=== PATIENT | male | born 1990 | race Caucasian/White ===

== ENCOUNTER → 2020-08-19 | Outpatient (CLI) | payer OTHER, SELFPAY | END | disposition home or self-care (01) | LOC: LABSPEC 17:28 | PROVIDERS: PCP Nurse Practitioner Family; Referring Provider Family Medicine; Visit Provider Family Medicine | DX: Z20.822 Contact with and (suspected) exposure to COVID-19 (principal) | CPT/HCPCS: 87635; C9803; U0005; U0003 ==

== ENCOUNTER 2024-09-14 13:09 | Emergency (ER) | payer OTHER, SELFPAY ==
[2024-09-14] VITALS (10 sets, daily range): BP systolic 94–154; BP diastolic 56–107; PULSE 89–111; RESP 16–33; TEMP 36.7–36.8; O2SAT 94–98; BMI 35.4
[2024-09-14 13:26] LABS: Absolute Lymphocyte Count 2.55 X10^3/uL (0.83-4.51); Absolute Neutrophil Count 6.8 X10^3/uL (2.0-7.7); Basophil# 0.07 X10^3/uL; Basophil% 0.7 % (0-1); Eosinophil# 0.16 X10^3/uL; Eosinophils% 1.6 % (0-5); Hematocrit 44.2 % (40-54); Hemoglobin 15.2 g/dL (13.0-16.5); Lymphocyte # 2.55 X10^3/ul (0.83-4.51); Lymphocyte % 25.1 % (19-41); Mean Corp Hgb Conc 34.4 g/dL (32-36); Mean Corpuscular Volume 90.2 fL (80-94); Mean Platelet Vol. 9.7 fl (6.2-12.0); Monocyte# 0.54 X10^3/uL; Monocyte% 5.3 % (0-10); NRBC Flagged by Analyzer 0 % (0-5); Neutrophil # 6.78 X10^3/uL (2.7-7.7); Neutrophil % 66.9 % (47-70); Platelet Count 307 K/mm3 (150-450); RBC Distribution Width CV 12.6 % (11.6-14.6); RBC Distribution Width SD 41.6 fl (35.1-43.9); White Blood Count 10.1 K/mm3 (4.4-11.0)
--- NOTE | 2024-09-14 13:40 | CT_ITS ---
PROCEDURE: BRAIN/HEAD WITHOUT CONTRAST REASON FOR EXAM: Focal right-sided seizure. The patient is non cooperative. TECHNIQUE: IV CONTRAST: None COMPARISON: None. TECHNIQUE: Helical imaging of CT head was performed without IV contrast. One or more of the following dose reduction techniques were used: automated exposure control, adjustment of the mA and/or kV according to patient size, use of iterative reconstruction technique. COMPARISON: None FINDINGS: BRAIN PARENCHYMA: No evidence for acute hemorrhage or large territory infarct. EXTRA-AXIAL SPACES: No acute extra-axial fluid collection identified. Basal cisterns are patent. MIDLINE SHIFT: None. VENTRICLES: No evidence of hydrocephalus. SCALP SOFT TISSUES: No significant abnormality. CALVARIUM: No acute process. VISUALIZED PARANASAL SINUSES: No air-fluid levels. MASTOID AIR CELLS: Grossly clear. CT/Brain/Head without Contrast IMPRESSION: No evidence of acute intracranial abnormality. One or more dose reduction techniques were used (e.g., Automated exposure contr ol, adjustment of the mA and/or kV according to patient size, use of iterative reconstruction technique). Reading Location: [place] [id number]
[2024-09-14 13:41] LABS: Anion Gap 8 (5-15); BUN 12 mg/dL (7-18); BUN/Creat Ratio 12.1 RATIO (10-20); Calcium,Total 8.9 mg/dL (8.5-10.1); Chloride 110 mmol/L (98-107); Creatinine, Serum 0.99 mg/dL (0.70-1.30); EST Glomerular Filtration Rate 93 mL/min (>60); Est Glom Filt Rate - Afr Amer 112 mL/min (>60); Estimated Creatinine Clearance 142.24 ml/min; Glucose 127 mg/dL (74-106); Potassium 3.4 mmol/L (3.5-5.1); Sodium Level 138 mmol/L (136-145)
[2024-09-14 13:42] LABS: Valproic Acid (Depakene) Level 27 ug/mL (50-100)
[2024-09-14] MEDS: Valproate Sodium 500 MG in Dextrose 5%-Water (50mL Bag) 50 ML 50 MG IV (13:46)
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
== END 2024-09-14 15:38 | disposition home or self-care (01) ==
PROVIDERS: Emergency Provider Emergency Medicine; Visit Provider Emergency Medicine
DX: G40.209 Localization-related (focal) (partial) symptomatic epilepsy and epileptic syndromes with complex partial seizures, not intractable, without status epilepticus (principal); F32.A Depression, unspecified; K21.9 Gastro-esophageal reflux disease without esophagitis; Z79.899 Other long term (current) drug therapy
CPT/HCPCS: 70450; 80048; 80164; 85025; 96365; 96366; 99284; A4216

== ENCOUNTER 2024-10-08 09:00 | Outpatient (CLI) | payer OTHER, SELFPAY ==
--- NOTE | 2024-10-08 13:22 | EKG12_ITS ---
Test Reason : PREOP Blood Pressure : */* mmHG Vent. Rate : 70 BPM Atrial Rate : 70 BPM P-R Int : 170 ms QRS Dur : 94 ms QT Int : 390 ms P-R-T Axes : 37 35 10 degrees QTcB Int : 421 ms Normal sinus rhythm Normal ECG Confirmed by Rahat Sommers ([id number]), scientific publications editor IDALIA GARG ([id number]) on 10/09/2024 5:59:01 AM Referred By: Yony Schilling Confirmed By: Rahat Sommers
[2024-10-08 15:14] LABS: Partial Thromboplast Time 25.7 Seconds (24.1-36.2)
[2024-10-08 15:49] LABS: Valproic Acid (Depakene) Level 24 ug/mL (50-100)
[2024-10-08 15:51] LABS: Magnesium 2.3 mg/dL (1.5-2.2)
[2024-10-08 16:13] LABS: Hepatitis C Antibody Nonreactive (Nonreactive)
--- NOTE | 2024-10-09 11:58 | PAT.ANE_ITS ---
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 When Was Last Pacemaker Check QUESTION #4 FULL TEXT: You/Your Family Experience fever (hyperthermia) with Anesthesia Last Oral Intake Last Oral intake: Last Oral Intake NPO since Meds taken in AM with sips of water? Meds patient instructed to take am of surgery PONV PONV - metal bench patternmaker: PONV - metal bench patternmaker Female No 10/08/24 09:43 HX of Motion Sickness No 10/08/24 09:43 HX of N/V After Surgery No 10/08/24 09:43 Non-Smoker No 10/08/24 09:43 Duration of Surgery greater Yes 10/08/24 09:43 than 60 minutes Number of Risk Factors 1 10/08/24 09:43 PONV Score Low Risk 10/08/24 09:43 Height & Weight Height & Weight: Anesthesia: Height & Weight Height 5 ft 9 in 09/29/24 13:49 Respiratory Assessment Respiratory Assessment - metal bench patternmaker: Respiratory Tract Infection Hx - metal bench patternmaker Hx Respiratory Tract Infection No 10/08/24 09:43 STOP Sleep Apnea STOP Sleep Apnea - metal bench patternmaker: STOP Sleep Apnea - metal bench patternmaker Hx Hypertension No 10/08/24 09:43 Hx Sleep Apnea No 10/08/24 09:43 CPAP BIPAP Do you snore loudly (louder Yes 10/08/24 09:43 than talking or can be heard Do you often feel tired/ Yes 10/08/24 09:43 fatigued/ sleepy during daytime? Has anyone observed you stop No 10/08/24 09:43 breathing during sleep? STOP Results Positive 10/08/24 09:43 QUESTION #5 FULL TEXT : Do you snore loudly (louder than talking or can be heard through closed doors)? 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 Specify any problems Hx of Preganancy in last 3 N/A 10/08/24 09:43 Months Nurse Filling Out Transfusion DSCHRIBER 10/08/24 09:43 & Questions: Date: 10/08/24 10/08/24 09:43 Time: 09:45 10/08/24 09:43 Patient unable to answer at this time (ie. confused, unrespo /Reproduction History /Reproductive History - metal bench patternmaker: /Reproductive Hx- metal bench patternmaker Hx Now No 10/08/24 09:43 Gestational Age (in weeks): EDC: Hx Hx Para Hx Section SAB No 10/08/24 09:43 Active Medications Active Medications: Current Medications Generic Name Dose Route Start Last Admin Trade Name Freq PRN Reason Stop Dose Admin Acetaminophen 1,000 mg 10/12/24 07:30 Acetaminophen 500 Mg Tablet PO 10/12/24 07:31 X1 ONE Cefazolin Sodium 2 gm/ N/A 20 mls @ 400 mls/hr 10/12/24 07:30 IV 10/12/24 07:32 PREOP ONE Tranexamic Acid 1,000 mg/ 110 mls @ 440 mls/hr 10/12/24 07:30 Sodium Chloride IV 10/12/24 07:44 X1 ONE Tranexamic Acid 1,000 mg/ 110 mls @ 440 mls/hr 10/12/24 07:30 Sodium Chloride IV 10/12/24 07:44 X1 ONE Magnesium Sulfate 1 gm/ 102 mls @ 408 mls/hr 10/12/24 07:30 Dextrose IV 10/12/24 07:44 X1 ONE Insulin Human Lispro 1 - 6 unit 10/12/24 07:30 Insulin Lispro 100 Unit/Ml Insuln.Pen SC 10/12/24 23:59 Q4H PRN PRN BG>/= 180, SEE PROTOCOL Protocol PFSH Medical History (Updated 10/08/24 @ 09:53 by Zuly Atkinson) Depression Anxiety Marijuana use Alcohol use History of steroid therapy Ambulates with cane Back pain Shortness of breath on exertion Vapes nicotine containing substance History of pain when walking Seizure disorder Home Medications ?Medication ?Instructions ?Recorded ?Last Taken ?Type aripiprazole 15 mg tablet 15 mg PO DAILY 09/14/24 Unkn own History buspirone 15 mg tablet 15 mg PO BID 09/14/24 Unknow n History divalproex 500 mg tablet,delayed 500 mg PO BID #60 tab s 09/14/24 Unknown Rx release (Depakote) lacosamide 150 mg tablet 300 mg PO BID 09/14/24 Unkno wn History topiramate 50 mg tablet 100 mg PO BID 10/08/24 Unkno wn History Allergy/AdvReac Type Severity Reaction Status Date / Time No Known Allergies Allergy Verified 10/08/24 09:29 Surgical History (Updated 10/08/24 @ 09:53 by Zuly Atkinson) History of tonsillectomy and adenoidectomy Social History (Updated 09/29/24 @ 13:53 by Tammy Arredondo) household members: spouse Smoking Status: Current every day smoker tobacco type: e-cigarettes alcohol intake: current Audit: Pertinent Findings Pertinent Findings EKG Perinent findings: October 08, 2024. Normal sinus rhythm.
--- NOTE | 2024-10-09 12:56 | PAT.ANESEVAL ---
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 When Was Last Pacemaker Check QUESTION #4 FULL TEXT: You/Your Family Experience fever (hyperthermia) with Anesthesia Last Oral Intake Last Oral intake: Last Oral Intake NPO since Meds taken in AM with sips of water? Meds patient instructed to take am of surgery PONV PONV - baffle mounter: PONV - baffle mounter Female No 10/08/24 09:43 HX of Motion Sickness No 10/08/24 09:43 HX of N/V After Surgery No 10/08/24 09:43 Non-Smoker No 10/08/24 09:43 Duration of Surgery greater Yes 10/08/24 09:43 than 60 minutes Number of Risk Factors 1 10/08/24 09:43 PONV Score Low Risk 10/08/24 09:43 Height & Weight Height & Weight: Anesthesia: Height & Weight Height 5 ft 9 in 09/29/24 13:49 Respiratory Assessment Respiratory Assessment - baffle mounter: Respiratory Tract Infection Hx - baffle mounter Hx Respiratory Tract Infection No 10/08/24 09:43 STOP Sleep Apnea STOP Sleep Apnea - baffle mounter: STOP Sleep Apnea - baffle mounter Hx Hypertension No 10/08/24 09:43 Hx Sleep Apnea No 10/08/24 09:43 CPAP BIPAP Do you snore loudly (louder Yes 10/08/24 09:43 than talking or can be heard Do you often feel tired/ Yes 10/08/24 09:43 fatigued/ sleepy during daytime? Has anyone observed you stop No 10/08/24 09:43 breathing during sleep? STOP Results Positive 10/08/24 09:43 QUESTION #5 FULL TEXT : Do you snore loudly (louder than talking or can be heard through closed doors)? Tobacco Use History Tobacco Use History - baffle mounter: Tobacco Use History - baffle mounter Tobacco Use Smoking Status Current every day smoker 10/08/24 09:43 Hx Tobacco Use Yes 10/08/24 09:43 Years Smoking Packs Smoked per Day Smoking Cessation Date was within the last 15 years Hx Smoking Cessation Date Hx Smoking Cessation Counseling Hematologic Medial History Hematologic Hx - baffle mounter: Hematologic Medical Hx - manager photography Hx of Blood Transfusion No 10/08/24 09:43 Hx of Transfusion in last 3 No 10/08/24 09:43 Months Date of Last Transfusion (if within last 3 months) Ever experience any problems No 10/08/24 09:43 with transfusion(s)? Specify any problems Hx of Preganancy in last 3 N/A 10/08/24 09:43 Months Nurse Filling Out Transfusion DSCHRIBER 10/08/24 09:43 & Questions: Date: 10/08/24 10/08/24 09:43 Time: 09:45 10/08/24 09:43 Patient unable to answer at this time (ie. confused, unrespo /Reproduction History /Reproductive History - baffle mounter: /Reproductive Hx- baffle mounter Hx Now No 10/08/24 09:43 Gestational Age (in weeks): EDC: Hx Hx Para Hx Section SAB No 10/08/24 09:43 Active Medications Active Medications: Current Medications Generic Name Dose Route Start Last Admin Trade Name Freq PRN Reason Stop Dose Admin Acetaminophen 1,000 mg 10/12/24 07:30 Acetaminophen 500 Mg Tablet PO 10/12/24 07:31 X1 ONE Cefazolin Sodium 2 gm/ N/A 20 mls @ 400 mls/hr 10/12/24 07:30 IV 10/12/24 07:32 PREOP ONE Tranexamic Acid 1,000 mg/ 110 mls @ 440 mls/hr 10/12/24 07:30 Sodium Chloride IV 10/12/24 07:44 X1 ONE Tranexamic Acid 1,000 mg/ 110 mls @ 440 mls/hr 10/12/24 07:30 Sodium Chloride IV 10/12/24 07:44 X1 ONE Magnesium Sulfate 1 gm/ 102 mls @ 408 mls/hr 10/12/24 07:30 Dextrose IV 10/12/24 07:44 X1 ONE Insulin Human Lispro 1 - 6 unit 10/12/24 07:30 Insulin Lispro 100 Unit/Ml Insuln.Pen SC 10/12/24 23:59 Q4H PRN PRN BG>/= 180, SEE PROTOCOL Protocol PFSH Medical History (Updated 10/08/24 @ 09:53 by Zuly Atkinson) Depression Anxiety Marijuana use Alcohol use History of steroid therapy Ambulates with cane Back pain Shortness of breath on exertion Vapes nicotine containing substance History of pain when walking Seizure disorder Home Medications ?Medication ?Instructions ?Recorded ?Last Taken ?Type aripiprazole 15 mg tablet 15 mg PO DAILY 09/14/24 Unknown History buspirone 15 mg tablet 15 mg PO BID 09/14/24 Unknown History divalproex 500 mg tablet,delayed 500 mg PO BID #60 tabs 09/14/24 Unknown Rx release (Depakote) lacosamide 150 mg tablet 300 mg PO BID 09/14/24 Unknown History topiramate 50 mg tablet 100 mg PO BID 10/08/24 Unknown History Allergy/AdvReac Type Severity Reaction Status Date / Time No Known Allergies Allergy Verified 10/08/24 09:29 Surgical History (Updated 10/08/24 @ 09:53 by Zuly Atkinson) History of tonsillectomy and adenoidectomy Social History (Updated 09/29/24 @ 13:53 by Tammy Arredondo) household members: spouse Smoking Status: Current every day smoker tobacco type: e-cigarettes alcohol intake: current Audit: Pertinent Findings HISTORY of Pertinent Findings History of Pertinent Findings: EKG Pertinent Findings EKG Perinent findings October 08, 2024. Normal 10/09/24 12:00 sinus rhythm. Recommendation Anesthesia Recommendation Anesthesia recommendation: F/U recommended (Patient had subtherapeutic Depakote levels on September 14, 2024. He had a seizure at that time. Valproic acid dosing was doubled. On October 08, 2024 levels were checked again and still subtherapeutic. Please have patient follow-up with his neurologist to ensure that he is adequately treated.)
--- NOTE | 2024-10-09 17:12 | NURSING ---
PT CASE WAS CALLED AND INFORMED THAT THEIR CASE FOR THURSDAY 10/12 WAS TO BE CANCELED BY ANESTHESIOLOGIST DUE TO NEEDING TO FOLLOW UP WITH NEUROLOGY AND GETTING THEIR SEIZURE DISORDER UNDER CONTROL. PT INFORMED TO CALL DR. ALBARADO'S OFFICE AND HIS NEUROLOGIST TO BE OPTIMIZED FOR SURGERY AND BE RESCHEDULED.
[2024-10-10 05:07] LABS: Hepatitis A AB, Total Negative (Negative)
[2024-10-12 15:08] LABS: HIV-1 RNA by PCR, Quant. < 20 copies/mL (.)
== END 2024-10-08 20:00 | disposition home or self-care (01) ==
LOC: PAT 12-04 14:41
PROVIDERS: Anesthesiology; Referring Provider Orthopaedic Surgery Orthopaedic Surgery of the Spine; Visit Provider Orthopaedic Surgery Orthopaedic Surgery of the Spine
DX: Z01.818 Encounter for other preprocedural examination (principal)
CPT/HCPCS: 80164; 83735; 85730; 86708; 86803; 86850; 86900; 86901; 87077; 87081; 87536; 93005; J3475

== ENCOUNTER 2024-12-08 09:33 | Day surgery (SDC) | payer OTHER, SELFPAY ==
--- NOTE | 2024-11-30 09:37 | PAT.ANESEVAL ---
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 When Was Last Pacemaker Check QUESTION #4 FULL TEXT: You/Your Family Experience fever (hyperthermia) with Anesthesia Last Oral Intake Last Oral intake: Last Oral Intake NPO since Meds taken in AM with sips of water? Meds patient instructed to take am of surgery PONV PONV - residential real estate assistant: PONV - residential real estate assistant Female No 11/26/24 14:44 HX of Motion Sickness No 11/26/24 14:44 HX of N/V After Surgery No 11/26/24 14:44 Non-Smoker No 11/26/24 14:44 Duration of Surgery greater Yes 11/26/24 14:44 than 60 minutes Number of Risk Factors 1 11/26/24 14:44 PONV Score Low Risk 11/26/24 14:44 Height & Weight Height & Weight: Anesthesia: Height & Weight Height 5 ft 9 in 09/29/24 13:49 Respiratory Assessment Respiratory Assessment - residential real estate assistant: Respiratory Tract Infection Hx - residential real estate assistant Hx Respiratory Tract Infection No 11/26/24 14:44 STOP Sleep Apnea STOP Sleep Apnea - residential real estate assistant: STOP Sleep Apnea - residential real estate assistant Hx Hypertension No 11/26/24 14:44 Hx Sleep Apnea No 11/26/24 14:44 CPAP BIPAP Do you snore loudly (louder Yes 11/26/24 14:44 than talking or can be heard Do you often feel tired/ Yes 11/26/24 14:44 fatigued/ sleepy during daytime? Has anyone observed you stop No 11/26/24 14:44 breathing during sleep? STOP Results Positive 11/26/24 14:44 QUESTION #5 FULL TEXT : Do you snore loudly (louder than talking or can be heard through closed doors)? 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 Specify any problems Hx of Preganancy in last 3 N/A 11/26/24 14:44 Months Nurse Filling Out Transfusion DSCHRIBER 11/26/24 14:44 & Questions: Date: 11/26/24 11/26/24 14:44 Time: 14:48 11/26/24 14:44 Patient unable to answer at this time (ie. confused, unrespo /Reproduction History /Reproductive History - residential real estate assistant: /Reproductive Hx- residential real estate assistant Hx Now Gestational Age (in weeks): EDC: Hx Hx Para Hx Section SAB No 11/26/24 14:44 PFSH Medical History (Updated 11/26/24 @ 14:53 by Zuly Atkinson) Depression Anxiety Marijuana use Alcohol use Ambulates with cane Back pain Shortness of breath on exertion Vapes nicotine containing substance History of pain when walking Seizure disorder Home Medications ?Medication ?Instructions ?Recorded ?Last Taken ?Type aripiprazole 15 mg tablet 15 mg PO DAILY 09/14/24 Unknown History buspirone 15 mg tablet 15 mg PO BID 09/14/24 Unknown History lacosamide 150 mg tablet 300 mg PO BID 09/14/24 Unknown History topiramate 50 mg tablet 100 mg PO BID 10/08/24 Unknown History divalproex 250 mg tablet,extended 250 mg PO BID 11/26/24 Unknown History release 24 hr divalproex 500 mg tablet,extended 500 mg PO BID 11/26/24 Unknown History release 24 hr Allergy/AdvReac Type Severity Reaction Status Date / Time No Known Allergies Allergy Verified 11/26/24 14:34 Surgical History History of tonsillectomy and adenoidectomy Social History household members: spouse Smoking Status: Current every day smoker tobacco type: e-cigarettes alcohol intake: current Audit: Pertinent Findings Pertinent Findings Consult pertinent findings: Neurology note for preoperative findings. Refractory idiopathic generalized epilepsy. Myoclonic seizures on antiepileptic therapy. Patient seen 11/21/2024. Continue current medications. Consider vagal nerve stimulation therapy. Recommendation Anesthesia Recommendation Anesthesia recommendation: OPTIMIZED for anesthesia
[2024-12-08] VITALS (13 sets, daily range): BP systolic 105–136; BP diastolic 67–91; PULSE 55–72; RESP 16–20; TEMP 36.1–36.5; O2SAT 94–100; BMI 37.8
[2024-12-08] MEDS: Acetaminophen 500 MG Tablet 1000 MG PO (10:27)
[2024-12-08] MEDS: Lactated Ringers 1,000 ML 15 ML IV (10:27)
[2024-12-08] MEDS: Magnesium 1 GM over 15 mins IV (10:27)
[2024-12-08 10:47] LABS: Bedside Glucose 89 mg/dL (74-106)
--- NOTE | 2024-12-08 11:33 | PRE.ANES_ITS ---
ASA Classification* ASA Classification ASA Classification: 2 Assessment & Plan Anesthesia* Anesthesia Assessment Anesthesia Assessment: Discussed sedation and/or anesthesia options, risks, benefits, and alternatives with patient/parents/legal guardian/POA. Questions invited. The patient/parents/legal guardian/POA seems to understand and agrees to proceed with anesthesia plan. Reviewed the physical assessment, medical history, allergy history and patient home medications list prior to surgery/procedure/anesthetic and documented any changes. Performed airway and anesthesia risk assessments. Anesthesia Type Anesthesia Type: General History Source History Obtained from:: Patient and Chart Anesthesia Focused Assessment* Temperature: 97.7 F Pulse Rate: 63 Blood Pressure: 110/67 Respiratory Rate: 16 Pulse Ox: 99 Oxygen Delivery Method: Room Air Airway Assessment Mouth opens: >3 cm Mallampati Score: II Teeth Condition: Chipped/Broken (Tooth #8 is split in half and capped. Still moves slightly.) Neck Range of motion (ROM): Full ROM Focused Labs Anesthesia Preop lab: CBC WBC 10.1 K/mm3 (4.4-11.0) 09/14/24 13:17 09/14/24 RBC 4.90 M/mm3 (4.6-6.2) 09/14/24 13:17 09/14/24 Hgb 15.2 g/dL (13.0-16.5) 09/14/24 13:17 09/14/24 Hct 44.2 % (40-54) 09/14/24 13:17 09/14/24 Plt Count 307 K/mm3 (150-450) 09/14/24 13:17 09/14/24 CHEMISTRY Potassium 3.4 mmol/L (3.5-5.1) L 09/14/24 13:17 09/14/24 Sodium 138 mmol/L (136-145) 09/14/24 13:17 09/14/24 Magnesium 2.3 mg/dL (1.5-2.2) H 10/08/24 13:53 10/08/24 BUN 12 mg/dL (7-18) 09/14/24 13:17 09/14/24 Creatinine 0.99 mg/dL (0.70-1.30) 09/14/24 13:17 09/14/24 Glucose 127 mg/dL (74-106) H 09/14/24 13:17 09/14/24 POC Glucose 89 mg/dL (74-106) 12/08/24 10:18 12/08/24 COAG Pre-Assessment Diagnosis/Proposed Procedure Planned Operative Procedure(s): LEFT LUMBAR DISCECTOMY L5-S1 Anesthesia History 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 When Was Last Pacemaker Check QUESTION #4 FULL TEXT: You/Your Family Experience fever (hyperthermia) with Anesthesia Last Oral Intake Last Oral intake: Last Oral Intake NPO since 08:00 12/08/24 10:33 Meds taken in AM with sips of Yes 12/08/24 10:33 water? Meds patient instructed to see home med list 12/08/24 10:33 take am of surgery Any additional information?: Yes NPO since: 08:00 (Patient had preop Ensure at 8 AM.) Meds taken in AM with sips of water?: Yes PONV PONV - telephone switchboard operator: PONV - telephone switchboard operator Female No 11/26/24 14:44 HX of Motion Sickness No 11/26/24 14:44 HX of N/V After Surgery No 11/26/24 14:44 Non-Smoker No 11/26/24 14:44 Duration of Surgery greater Yes 11/26/24 14:44 than 60 minutes Number of Risk Factors 1 11/26/24 14:44 PONV Score Low Risk 11/26/24 14:44 Height & Weight Height & Weight: Anesthesia: Height & Weight Height 5 ft 9 in 12/08/24 10:33 Weight: 116 kg 12/08/24 10:33 Body Mass Index (BMI) 37.8 12/08/24 10:33 Respiratory Assessment Respiratory Assessment - telephone switchboard operator: Respiratory Tract Infection Hx - telephone switchboard operator Hx Respiratory Tract Infection No 11/26/24 14:44 STOP Sleep Apnea STOP Sleep Apnea - telephone switchboard operator: STOP Sleep Apnea - telephone switchboard operator Hx Hypertension No 11/26/24 14:44 Hx Sleep Apnea No 11/26/24 14:44 CPAP BIPAP Do you snore loudly (louder Yes 11/26/24 14:44 than talking or can be heard Do you often feel tired/ Yes 11/26/24 14:44 fatigued/ sleepy during daytime? Has anyone observed you stop No 11/26/24 14:44 breathing during sleep? STOP Results Positive 11/26/24 14:44 QUESTION #5 FULL TEXT : Do you snore loudly (louder than talking or can be heard through closed doors)? Tobacco Use History Tobacco Use History - telephone switchboard operator: Tobacco Use History - telephone switchboard operator Tobacco Use Smoking Status Current every day smoker 11/26/24 14:44 Hx Tobacco Use Yes 11/26/24 14:44 Years Smoking Packs Smoked per Day Smoking Cessation Date was within the last 15 years Hx Smoking Cessation Date Hx Smoking Cessation Counseling Any additional information?: Yes Smoking Status: Current every day smoker (Patient did not smoke today.) Hematologic Medial History Hematologic Hx - telephone switchboard operator: Hematologic Medical Hx - rn clinical documentation Hx of Blood Transfusion No 11/26/24 14:44 Hx of Transfusion in last 3 No 11/26/24 14:44 Months Date of Last Transfusion (if within last 3 months) Ever experience any problems No 11/26/24 14:44 with transfusion(s)? Specify any problems Hx of Preganancy in last 3 N/A 11/26/24 14:44 Months Nurse Filling Out Transfusion DSCHRIBER 11/26/24 14:44 & Questions: Date: 11/26/24 11/26/24 14:44 Time: 14:48 11/26/24 14:44 Patient unable to answer at this time (ie. confused, unrespo /Reproduction History /Reproductive History - telephone switchboard operator: /Reproductive Hx- telephone switchboard operator Hx Now Gestational Age (in weeks): EDC: Hx Hx Para Hx Section SAB No 11/26/24 14:44 Active Medications Active Medications: Current Medications Generic Name Dose Route Start Last Admin Trade Name Freq PRN Reason Stop Dose Admin Acetaminophen 1,000 mg 12/08/24 12:00 12/08/24 10:27 Acetaminophen 500 Mg Tablet PO 12/08/24 12:01 1,000 mg X1 ONE Administration Cefazolin Sodium 2 gm/ Sodium 110 mls @ 150 mls/hr 12/08/24 12:00 Chloride IV 12/08/24 12:43 PREOP ONE Tranexamic Acid 1,000 mg/ 110 mls @ 440 mls/hr 12/08/24 12:00 Sodium Chloride IV 12/08/24 12:14 X1 ONE Tranexamic Acid 1,000 mg/ 110 mls @ 440 mls/hr 12/08/24 12:00 Sodium Chloride IV 12/08/24 12:14 X1 ONE Magnesium Sulfate 1 gm/ 102 mls @ 408 mls/hr 12/08/24 12:00 12/08/24 10:27 Dextrose IV 12/08/24 12:14 408 mls/hr X1 ONE Administration Lactated Ringer's 1,000 mls @ 15 mls/hr 12/08/24 10:00 12/08/24 10:27 IV 15 mls/hr .Q48H ARABELLA Administration Insulin Human Lispro 1 - 6 unit 12/08/24 12:00 Insulin Lispro 100 Unit/Ml Insuln.Pen SC 12/08/24 18:00 Q4H PRN PRN BG>/= 180, SEE PROTOCOL Protocol PFSH Medical History Depression Anxiety Marijuana use Alcohol use Ambulates with cane Back pain Shortness of breath on exertion Vapes nicotine containing substance History of pain when walking Seizure disorder Home Medications ?Medication ?Instructions ?Recorded ?Last Taken ?Type aripiprazole 15 mg tablet 15 mg PO DAILY 09/14/2411/11 History buspirone 15 mg tablet 15 mg PO BID 09/14/24 History lacosamide 150 mg tablet 300 mg PO BID 09/14/2412/08 History topiramate 50 mg tablet 100 mg PO BID 10/08/2412/08 History divalproex 500 mg tablet,extended 500 mg PO BID 12/08/24 History release 24 hr divalproex 250 mg tablet,extended 250 mg PO BID 12/08/24 History release 24 hr Allergy/AdvReac Type Severity Reaction Status Date / Time No Known Allergies Allergy Verified 12/08/24 10:10 Surgical History History of tonsillectomy and adenoidectomy Social History household members: spouse Smoking Status: Current every day smoker tobacco type: e-cigarettes alcohol intake: current Review of Systems (Anesthesia) ROS Narrative System reviewed and no additional complaints, except as documented.
--- NOTE | 2024-12-08 11:54 | PCM.HP.BLA ---
History and Physical MR#: [id number] Acct: [id number] Name: LIBERTAD BARLOW Rep #: [id number] : 1990 Provider: Dr. Yony Schilling MD Age/Sex: 34/M Location: [facility] [place].[facility] Status: Signed Intake Vital Signs 09/29/2512:49 12/03/2512:32 Height 5 ft 9 in 5 ft 9 in Weight: 257 lb 2 oz BMI 38.0 Intake Visit Reasons: lumbar spine Chief Complaint: lumbar spine pre-op Is patient in pain?: Yes Pain scale (1-10): 4 Allergies No Known Allergies Allergy (Verified 12/03/24 13:32) Medications ?Medication ?Instructions ?Recorded ?Confirmed ?Type aripiprazole 15 mg tablet 15 mg PO DAILY 09/14/24 12/03/24 History buspirone 15 mg tablet 15 mg PO BID 09/14/24 12/03/24 History lacosamide 150 mg tablet 300 mg PO BID 09/14/24 12/03/24 History topiramate 50 mg tablet 100 mg PO BID 10/08/24 12/03/24 History divalproex 500 mg tablet,extended 500 mg PO BID 11/26/24 12/03/24 History release 24 hr divalproex 250 mg tablet,extended 250 mg PO BID 12/03/24 12/03/24 History release 24 hr PFSH Medical History Depression Anxiety Marijuana use Alcohol use Ambulates with cane Back pain Shortness of breath on exertion Vapes nicotine containing substance History of pain when walking Seizure disorder Surgical History History of tonsillectomy and adenoidectomy Social History household members: spouse Smoking Status: Current every day smoker tobacco type: e-cigarettes alcohol intake: current HPI lumbar spine Details: This documentation accurately reflects the service provided and the decisions made by me, Dr. Yony Schilling MD 12/03/24 [id number]. Part of today?s visit was documented by Maggie Sanders ATC, acting as scribe. LIBERTAD BARLOW is a 34 year old M here today for pre-op for left lumbar discectomy L5-S1 DOS 12/08/2024. Patient states his doctor increased his Depakote medication for surgery. He rates his pain a 4/10 today. He denies any recent injections. 10/09/24: LIBERTAD BARLOW is a 34 year old M here today for lumbar spine pre-op for L5-S1 left discectomy surgery on 10/12/2024. Patient states he was notified him that his depakote levels were low and they may have to do something about it prior to his surgery. Patient states the lumbar spine pain is the same as it was at his last visit. He denies any injections. 09/29/24: LIBERTAD BARLOW is a 34 year old M here today for low back pain. Patient notes that he has had back pain for many years with his pain worsening over the last few months. He denies any known injury. He states that he woke up one day with increased pain. He denies any lumbar surgery. He has pain in his low back into his tailbone, and into his left leg. Patient has radiating pain into his foot. He has numbness and tingling into his left leg as well. He has increased with standing and ambulation. Patient uses a cane to ambulate. He is able to sit with minimal pain. Patient denies any xrays. He has done about 14 visits at [facility] which has been helpful. He was unable to ambulate and not he can walk a little. Patient denies any injections. Patient had an MRI which he brought with him. Patient takes ibuprofen and tylenol which wasnt helpful. He was then prescribed oxycodone for pain which he has stopped. Ortho Exam General General: Yes no acute distress Neurologic: Yes alert and Yes oriented x3 Spine SPINE TESTING CERVICAL THORACIC LUMBAR Musculoskeletal Strength 0=absent - 5=normal Details: Examination back shows midline and left paraspinal tenderness to lower lumbar spine. Neurologic motion of lower extremity shows 5 x 5 power in all muscle except for grade 4 - gastrosoleus. Passive straight leg raise test is positive on the left. Patient walks with a cane due to pain with weightbearing. Patient was unable to step up onto the exam table despite holding on. Coding Level of Care Code Off vis,est,level 4 Diagnoses Lumbar disc herniation with radiculopathy M51.16 Time Spent (min) 35 Assessment and Plan Assessment and Plan (1) Lumbar disc herniation with radiculopathy: Status: Acute Plan Again reviewed x-rays and MRI done previously. These show L5-S1 disc height loss. No dynamic instability. Reviewed MRI from outside institution done on 09/22/1944. This shows L5-S1 left paracentral large disc herniation causing severe lateral recess stenosis. Surgery was canceled in October due to low Depakote levels. Patient has now been cleared by neurology. Again explained imaging findings in detail. Patient has a large lumbar disc herniation causing severe radicular symptoms along with weakness in the left lower extremity. Explained to him the natural history of lumbar disc herniations which often improve over 6 to 12-week. Patient however has been through the severe radicular pain at least for 2 to 3 months now without significant relief. He is still severely bothered by the pain such that he requires a cane for support which she never used before this incident. He has not been able to get rid of the cane. He has severe difficulty pushing off on the left lower extremity. He wishes to proceed with surgical intervention. Explained to him surgical microdiscectomy. Discussed risk benefits and alternatives. Risks include but are not limited to infection, bleeding, injury to nerves and vessels, hematoma formation, recurrent disc herniation, discitis, osteomyelitis, DVT, pulm embolism, need for fusion, instability, nerve root injury, foot drop, persistent pain, persistent weakness and numbness, pneumonia, atelectasis, cardiopulmonary event. Patient understands and agrees to proceed with surgery. Consent was signed.
--- NOTE | 2024-12-08 12:22 | RAD_ITS ---
PROCEDURE: LUMBAR SPINE 2 OR 3 VIEWS 12/08/2024 REASON FOR EXAM: LUMBAR DISCECTOMY L5-S1 TECHNIQUE: Intraoperative cross-table lateral and AP views of the lumbar spine COMPARISON: L-spine radiographs 09/30/2024. FINDINGS: Multiple intraoperative fluoroscopic spot images were obtained of the lumbar spine for surgical localization. Radiopaque surgical device seen at the L5-S1 disc space. RAD/Lumbar Spine 2 or 3 Views IMPRESSION: Multiple intraoperative L-spine fluoroscopic images as described. Reading Location: [id number]
[2024-12-08] MEDS: Cefazolin 2 GM in 0.9% Normal Saline (100mL Bag) 100 ML IV (12:35)
[2024-12-08] MEDS: Bupiv/Epi 0.25% 30 ML Vial (12:45)
[2024-12-08] MEDS: TRANEXAMIC ACID 1,000 MG in 0.9% Normal Saline (100mL Bag) 100 ML 440 MG IV ×2 (12:49→14:18)
[2024-12-08] MEDS: Triamcinolone Acetonide 40 MG/ML Vial (14:19)
--- NOTE | 2024-12-08 14:47 | PCM.POST.ANE ---
Anesthesia: Postop Eval I Current Vital Signs Temperature: 97.0 F Pulse Rate: 67 Blood Pressure: 105/91 Respiratory Rate: 20 Pulse Ox: 95 Oxygen Delivery Method: Room Air Assessment Airway patent: Yes Spontaneous unlabored respirations: Yes Mental status: Asleep nausea: No Vomiting: No Anesthesia Complication: No Fluid Hydration Crystalloid volume administer (ml): 1,700 Total IV fluid infused: 1,700 Progress Note Anesthesia document: Postop Eval 1 completed: Yes
--- NOTE | 2024-12-08 14:51 | PCM.OPRPT ---
Procedures Musculoskeletal [id number]: Other Procedure See Report Operative Report (Standard) Operative Information Date of Procedure: 12/08/24 Pre-Operative Diagnosis: L5-S1 left disc herniation with radiculopathy Post-Operative Diagnosis: Same Surgery/Procedure Performed: L5-S1 left lumbar discectomy cow puncher: Yes Plant Technical Specialist: Cherry Guzman Tasks completed by medical assistant secretary: Closing, Removing tissue and Hemostasis: Electrocautery Type of Anesthesia: General RN Documented Start/Stop Times: Operation Date: 12/08/24 12:00 Case Time Into Pre-Op 12/08/24 09:49 Anesthesia Start 12/08/24 12:04 Into Room 12/08/24 12:04 Procedure Start 12/08/24 12:42 Procedure End 12/08/24 14:28 Anesthesia End 12/08/24 14:40 Out of Room 12/08/24 14:40 Procedure Start Time: 12:42 Procedure Stop Time: 14:28 Select all DRAINS/GRAFTS/IMPLANTS that apply: None Estimated Blood Loss: 5 cc Specimen collected: No Description of surgery: Preoperative diagnosis: L5-S1 left paracentral disc herniation with radiculopathy Postoperative diagnosis: Same Name of procedure: L5-S1 left sided microdiscectomy CPT 34354 Attending Surgeon: Dr. Yony Schilling Estimated blood loss: 5 mL Anesthesia: General Indications: Patient is a 34-year-old gentleman who presented with low back pain and severe left lower extremity radiation. MRI revealed L5-S1 Left paracentral disc herniation. All options of treatment were discussed which included continued nonoperative treatment measures like rest physical therapy, injections. After prolonged nonsurgical treatment, patient requested surgical intervention for microdiscectomy. All risks and benefits associated with the procedure were explained to the patient. The risks include but are not limited to infection, bleeding, injury to nerves and vessels, persistent paresthesia, incidental dural tear, recurrent disc herniation, spinal instability and need for fusion or other procedures in future, persistent pain, persistent weakness and numbness, etc. Procedure: The patient was identified in the preoperative holding suite using Unique patient identifiers. Skin was marked, consent was reviewed, and all questions were answered. The patient was then brought back to the operative room. A surgical timeout was performed to make sure correct procedure was being done on the correct patient and all operative room staff were on the same page. General endotracheal anesthesia was then given to the patient. The patient was then turned prone onto a William table over a Joe frame. The back was prepped and draped in usual fashion. Preoperative antibiotic was given. A final timeout was then again done just before starting the procedure. Incision was marked using the AP view to show the L5-S1 interspace was left. An incision was then carried out Just to the left of the midline. Fascia was incised vertically. Serial dilator was then passed deep into the L5-S1 interspace under C-arm control. Minimally invasive cannula was then passed over the last dilator. Inferior edge of the L5 lamina was identified and palpated. Under light based direct visualization, remainder of the muscle tissue was cauterized and inferior edge of lamina as well as labrum was identified. Straight biters were then utilized to resect the flavum in the epidural space was entered. Up-biting instrument was then used to remove the remainder of the flavum going up to the lateral recess. Epidural fat was removed. Traversing left S1 nerve root was identified. This was carefully teased off of the underlying disc with a lot of [place] 4. The traversing left S1 nerve root was then carefully retracted to expose the disc. Nerve hook was utilized to tease out the extruded fragments. These were removed piecemeal with the help of pituitaries. Annulotomy was identified and loose fragments were also removed from the disc space. Once adequate decompression was achieved, feeler probe was then used to make sure the nerve was well decompressed and all disc fragments extruded underneath the nerve were all removed. 40 mg of Kenalog was then injected into the epidural space. Hemostasis was achieved. Closure was done with help of 2-0 Vicryl for subcutaneous tissue and 4 oh Monocryl for the skin. The skin closure was augmented with Dermabond. 2 x 2 gauze was then placed over the wound covered with Tegaderm. The patient was then turned supine onto a hospital bed. The patient was extubated and taken to PACU in stable condition. The patient tolerated the procedure well and no complications occurred. Estimated blood loss for the entire surgery was 5 mL. No instrumentation was utilized in this case. No dural tear occurred in this case. Neuromonitoring was utilized during the surgery and all sensory and EMG potentials remained at baseline. I was present for the entirety of the case and performed the surgery myself. Surgical Findings: See operative note Complications Complications: No
--- NOTE | 2024-12-08 16:56 | POSTOPAN2_ITS ---
Anesthesia Postop Eval I Sum Postop Eval Completion status Anesthesia document: Postop Eval 1 completed: Yes Anesthesia Postop Eval I Summary Anesthesia Postop Eval I Summary: Anesthesia Postop Eval I: Assessment Summary Airway patent Yes 12/08/24 14:47 [employer][email or web address] Spontaneous unlabored Yes 12/08/24 14:47 [employer][email or web address] respirations Mental status Asleep 12/08/24 14:47 [employer][email or web address] nausea No 12/08/24 14:47 [employer][email or web address] Vomiting No 12/08/24 14:47 [employer][email or web address] Anesthesia Postop Eval I: Fluid Summary Crystalloid volume administer 1,700 12/08/24 14:47 [employer][email or web address] (ml) Colloids volume administered ( ml) Blood Product volume administered (ml) Total IV fluid infused 1,700 12/08/24 14:47 [employer][email or web address] Anesthesia Postop Eval I: Summary Notes Anesthesia Complication No 12/08/24 14:47 [employer][email or web address] Anesthesia Complication Comment: Post-operative progress note Anesthesia: Postop Eval II Evaluation Mental status: Awake and Calm Pain Level: 4 nausea: No Vomiting: No Complications Anesthesia Complication: No
--- NOTE | 2024-12-08 16:56 | PCM.POSTANE2 ---
Anesthesia Postop Eval I Sum Postop Eval Completion status Anesthesia document: Postop Eval 1 completed: Yes Anesthesia Postop Eval I Summary Anesthesia Postop Eval I Summary: Anesthesia Postop Eval I: Assessment Summary Airway patent Yes 12/08/24 14:47 [employer][email or web address] Spontaneous unlabored Yes 12/08/24 14:47 [employer][email or web address] respirations Mental status Asleep 12/08/24 14:47 [employer][email or web address] nausea No 12/08/24 14:47 [employer][email or web address] Vomiting No 12/08/24 14:47 [employer][email or web address] Anesthesia Postop Eval I: Fluid Summary Crystalloid volume administer 1,700 12/08/24 14:47 [employer][email or web address] (ml) Colloids volume administered ( ml) Blood Product volume administered (ml) Total IV fluid infused 1,700 12/08/24 14:47 [employer][email or web address] Anesthesia Postop Eval I: Summary Notes Anesthesia Complication No 12/08/24 14:47 [employer][email or web address] Anesthesia Complication Comment: Post-operative progress note Anesthesia: Postop Eval II Evaluation Mental status: Awake and Calm Pain Level: 4 nausea: No Vomiting: No Complications Anesthesia Complication: No
== END 2024-12-08 16:43 | disposition home or self-care (01) ==
LOC: SDC 09:35 → AC 09:36
PROVIDERS: Referring Provider Orthopaedic Surgery Orthopaedic Surgery of the Spine; Visit Provider Orthopaedic Surgery Orthopaedic Surgery of the Spine
PROC: 0SB24ZZ Excision of Lumbar Vertebral Disc, Percutaneous Endoscopic Approach (ICD-10-PCS; CPT 62287; principal; 2024-12-08 11:45)
DX: M51.17 Intervertebral disc disorders with radiculopathy, lumbosacral region (principal); G40.909 Epilepsy, unspecified, not intractable, without status epilepticus; F17.290 Nicotine dependence, other tobacco product, uncomplicated; F32.A Depression, unspecified; F41.9 Anxiety disorder, unspecified; Z79.899 Other long term (current) drug therapy
CPT/HCPCS: 63030; 00630; 72100; 76000; 82962; J2405; J3475